=== PATIENT | male | born 1940 | race Caucasian/White ===

== ENCOUNTER 2018-10-07 09:14 | Outpatient (CLI) | payer MEDICARE, OTHER, SELFPAY ==
[2018-10-07 11:36] LABS: ALT 35 U/L (12-78); AST 20 U/L (15-37); Alkaline Phosphatase 102 U/L (46-116); Anion Gap 9.1 mmol/L (3-11); BUN 9 mg/dL (7-18); Bilirubin, Total 0.7 mg/dL (0.2-1.0); CO2 27.9 mmol/L (21.0-32.0); CREATININE 0.85 mg/dL (0.70-1.30); Calcium 9.9 mg/dL (8.5-10.1); Chloride 103 mmol/L (98-107); Cholesterol 171 mg/dL (50-200); Glucose 249 mg/dL (70-100); HDL Cholesterol 49 mg/dL (40-60); LDL CHOLESTEROL 110 mg/dL (<100); Sodium 140 mmol/L (136-145); Total Protein 7.1 g/dL (6.4-8.2); Triglyceride 106 mg/dL (30-150)
[2018-10-07 11:49] LABS: Hemoglobin A1C 7.8 % (4.5-6.2)
[2018-10-07 11:58] LABS: COMMENT (LAB VIEW ONLY) 79.27 mg/dL; Microalb ug/mg Crea 7.8 ug/mg Cr
== END 2018-10-07 09:34 ==
PROVIDERS: PCP Family Medicine; Visit Provider Family Medicine
DX: E11.9 Type 2 diabetes mellitus without complications (principal); I10 Essential (primary) hypertension; I25.10 Atherosclerotic heart disease of native coronary artery without angina pectoris
CPT/HCPCS: 36415; 80053; 80061; 83721; 82043; 82570; 83036

== ENCOUNTER 2019-02-03 07:22 | Outpatient (CLI) | payer MEDICARE, OTHER, SELFPAY ==
[2019-02-03 09:17] LABS: Hemoglobin A1C 8.2 % (4.5-6.2)
== END 2019-02-03 07:42 ==
PROVIDERS: PCP Family Medicine; Visit Provider Family Medicine
DX: E11.9 Type 2 diabetes mellitus without complications (principal)
CPT/HCPCS: 36415; 83036

== ENCOUNTER 2019-06-02 09:06 | Outpatient (CLI) | payer MEDICARE, OTHER, SELFPAY ==
[2019-06-02 10:11] LABS: Hemoglobin A1C 8.4 % (4.5-6.2)
== END 2019-06-02 09:26 ==
PROVIDERS: PCP Family Medicine; Visit Provider Family Medicine
DX: E11.9 Type 2 diabetes mellitus without complications (principal)
CPT/HCPCS: 36415; 83036

== ENCOUNTER 2019-09-30 08:59 | Outpatient (CLI) | payer MEDICARE, OTHER, SELFPAY ==
[2019-09-30 12:14] LABS: Hemoglobin A1C 9.1 % (4.5-6.2)
[2019-09-30 12:22] LABS: ALT 26 U/L (16-63); AST 11 U/L (15-37); Albumin 4.3 g/dL (3.4-5.0); Alkaline Phosphatase 95 U/L (46-116); Anion Gap 8.5 mmol/L (3-11); BUN 13 mg/dL (7-18); Bilirubin, Total 0.6 mg/dL (0.2-1.0); CO2 28.5 mmol/L (21.0-32.0); CREATININE 0.81 mg/dL (0.70-1.30); Calcium 10.1 mg/dL (8.5-10.1); Calculated LDL 97 mg/dL; Chloride 105 mmol/L (98-107); Cholesterol 161 mg/dL (50-200); Glucose 222 mg/dL (70-100); HDL Cholesterol 50 mg/dL (40-60); Potassium 4.8 mmol/L (3.5-5.1); Sodium 142 mmol/L (136-145); Total Protein 7.4 g/dL (6.4-8.2); Triglyceride 71 mg/dL (30-150)
[2019-09-30 12:55] LABS: COMMENT (LAB VIEW ONLY) 91.72 mg/dL; Microalb ug/mg Crea 19.8 ug/mg Cr
== END 2019-09-30 09:19 ==
PROVIDERS: PCP Family Medicine; Visit Provider Family Medicine
DX: E11.9 Type 2 diabetes mellitus without complications (principal); E78.5 Hyperlipidemia, unspecified; I10 Essential (primary) hypertension; I25.10 Atherosclerotic heart disease of native coronary artery without angina pectoris
CPT/HCPCS: 36415; 80053; 80061; 82043; 82570; 83036

== ENCOUNTER 2019-10-20 01:20 | Outpatient (CLI) | payer MEDICARE, OTHER, SELFPAY ==
--- NOTE | 2019-10-20 10:20 | DIABASSESS_ITS ---
DESCRIPTION/ASSESSMENT: Mor Nelson presents for medical nutrition therapy for diabetes. Earliest A1c 2012. He has had a recent jump in A1c to 9.1 and this has caused him to come in for self management support. Nutrition: 2 toast or biscuit , portillo, sausage; occasionally raisin bran with whole milk for breakfast or supper; lunch is sandwich of olive loaf with olson or peas with cottage cheese or skips lunch; supper is meat; last night hamburg with bun. He has muffins or peaches in evening. He declines alcoholic beverages. Physical Activity: in the [place] cutting trees most days and heats his house with it. Medication: Medication list indicates Glipizide and Metformin although he does not confirm this specifically. Monitoring: each morning with blood sugars over the past week 175-198 however this morning it was 230mg/dl. Risks/Related health history: Cholesterol near goal; no identified co- morbidities although he states he has had stomach problems in the past. Coping: Describes still grieving the of his but remains active and engaged. Admits to feeling down at times. INTERVENTION: Mr. Nelson is interested in the food aspect of diabetes management. Food Guidelines - reviewed food guide for diabetes with lengthy discussion and he voices understanding. Medication - suggested glycemic management with additional medication in the event lifestyle changes are inadequate. He is not interested at this time. Monitoring - suggested varying the time to see if blood sugars change throughout the day. Coping - discussed loneliness and loss and impact on blood sugars. ACTION PLAN: Mr. Nelson will: increase vegetables daily; avoid highly processed grains and decrease frequency of grain intake Monitor blood sugars occasionally before bed or before supper to assess impact of choices made during his day. We will be in touch by telephone for follow up. Individual MNT 4 units 65 minutes face to face No DM group education series being offered at this time.
== END 2019-10-20 01:40 ==
PROVIDERS: PCP Family Medicine; Visit Provider Dietitian, Registered
DX: E11.9 Type 2 diabetes mellitus without complications (principal); Z79.84 Long term (current) use of oral hypoglycemic drugs; Z71.3 Dietary counseling and surveillance
CPT/HCPCS: 97802

== ENCOUNTER 2020-02-02 07:07 | Outpatient (CLI) | payer MEDICARE, OTHER, SELFPAY ==
[2020-02-02 08:21] LABS: Hemoglobin A1C 8.5 % (3.8-5.6)
== END 2020-02-02 07:27 ==
PROVIDERS: PCP Family Medicine; Visit Provider Family Medicine
DX: E11.9 Type 2 diabetes mellitus without complications (principal)
CPT/HCPCS: 36415; 83036

== ENCOUNTER 2021-11-04 03:19 | Outpatient (CLI) | payer MEDICARE, OTHER, SELFPAY ==
[2021-11-04 14:50] LABS: Hemoglobin A1C 6.9 % (<5.7)
[2021-11-04 15:12] LABS: COMMENT (LAB VIEW ONLY) 247.05 mg/dL; Microalb ug/mg Crea 16.9 ug/mg Cr
[2021-11-04 15:33] LABS: ALT 29 U/L (16-63); AST 17 U/L (15-37); Alkaline Phosphatase 96 U/L (46-116); BUN 10 mg/dL (7-18); Bilirubin, Total 0.9 mg/dL (0.2-1.0); CREATININE 0.8 mg/dL (0.70-1.30); Chloride 106 mmol/L (98-107); Glucose 131 mg/dL (74-106); Potassium 4.1 mmol/L (3.5-5.1); Sodium 142 mmol/L (136-145)
== END 2021-11-04 03:20 | disposition home or self-care (01) ==
LOC: LBO 03:20
PROVIDERS: PCP Family Medicine; Visit Provider Family Medicine
DX: I10 Essential (primary) hypertension (principal); E11.9 Type 2 diabetes mellitus without complications
CPT/HCPCS: 36415; 80053; 82043; 82570; 83036

== ENCOUNTER 2022-03-03 02:33 | Outpatient (CLI) | payer MEDICARE, OTHER, SELFPAY ==
[2022-03-03 14:19] LABS: Hemoglobin A1C 7.8 % (<5.7)
[2022-03-03 14:42] LABS: COMMENT (LAB VIEW ONLY) 139.15 mg/dL; Microalb ug/mg Crea 13.7 ug/mg Cr
[2022-03-03 15:42] LABS: ALT 28 U/L (16-63); AST 16 U/L (15-37); Alkaline Phosphatase 100 U/L (46-116); Anion Gap 8.5 mmol/L (3-11); BUN 10 mg/dL (7-18); Bilirubin, Total 0.9 mg/dL (0.2-1.0); CO2 27.5 mmol/L (21.0-32.0); CREATININE 0.8 mg/dL (0.70-1.30); Calcium 9.5 mg/dL (8.5-10.1); Calculated LDL 99 mg/dL (<100); Chloride 105 mmol/L (98-107); Cholesterol 162 mg/dL (<200); Glucose 164 mg/dL (74-106); HDL Cholesterol 46 mg/dL (40-60); Potassium 4.1 mmol/L (3.5-5.1); Sodium 141 mmol/L (136-145); Total Protein 6.9 g/dL (6.4-8.2); Triglyceride 87 mg/dL (<150)
== END 2022-03-03 02:34 | disposition home or self-care (01) ==
LOC: LBO 02:33
PROVIDERS: PCP Family Medicine; Visit Provider Family Medicine
DX: E11.3299 Type 2 diabetes mellitus with mild nonproliferative diabetic retinopathy without macular edema, unspecified eye (principal); E78.5 Hyperlipidemia, unspecified; I10 Essential (primary) hypertension; I25.10 Atherosclerotic heart disease of native coronary artery without angina pectoris
CPT/HCPCS: 36415; 80053; 80061; 82043; 82570; 83036

== ENCOUNTER 2022-10-18 10:50 | Emergency (ER) | payer MEDICARE, OTHER, SELFPAY ==
[2022-10-18 11:04] VITALS: BP 159/49; PULSE 65; RESP 12; TEMP 36.7; O2SAT 99
--- NOTE | 2022-10-18 12:14 | ED.GENADUL_ITS ---
Discharge Plan Disposition Patient Disposition: Home Condition: Improving Discharge Details Clinical Impression: Acute sore throat Primary Care Provider: Adele Lee ED Provider: Dre Harding Home Meds and New Rx's Prescriptions: Continued nitroglycerin [Nitrostat] 0.4 mg tablet, sublingual 0.4 mg Sublingual PRN Qty: 25 3RF Rx Instructions: TAKE IF YOU HAVE CHEST PAIN. REPEAT EVERY 5 MIN. FOR 3 DOSES. GO TO THE ER IF NOT RELIEVED. glipizide 10 mg tablet extended release 24hr 10 mg PO BID Qty: 180 4RF losartan 25 mg tablet 25 mg PO DAILY Qty: 90 4RF metformin 1,000 mg tablet See Rx Instructions PO TID Qty: 225 4RF Dose Instruction: 1 tab AM and PM; 0.5tab noon PO TID; Rx Instructions: 1.5 tabs am and 1 tab pm aspirin [Aspir-81] 81 mg tablet,delayed release (DR/EC) 81 mg PO 3x/week Label Comments: 07/18/21- Per patient, he takes only occasionally. aj Discharge Instructions Instructions: Viral Syndrome (ED) Additional Instructions: Thank you for your service. Your rapid strep test was negative. Continue salt water gargles to ease discomfort of your sore throat. You may use okrf-vqv-zfzsqir lozenges. We will call you with your viral swab tests this afternoon. Return to the emergency department for any acute concern Medical Decision Making 82-year-old male presents from home complaining of 2 to 3 days of sore throat and dry cough. No known sick contacts, he is immunized against COVID. On arrival he is well-appearing and his exam is reassuring. Rapid strep test obtained and negative. Viral swabs are pending. Patient wishes to be discharged to home, stating he feels improved. I will call him with results of the viral swabs: The pt was positive for COVID-19. He and I discussed that he would wish to avoid any antiviral treatment. Sign Out No HPI General Mode of arrival: ambulatory . Date/Time Provider Initiated Documentation: 10/18/22 11:13 . Limitations to Documentation: no limitations . Information obtained by: patient . History of Present Illness 82 year old M presents to the emergency department with the chief complaint of Sore throat and dry cough, described as moderate, and is localized to the mouth and chest. Patient reports no radiation. Patient started experiencing this day(s) and it has been intermittent. No relieving factors improve symptom(s), No exacerbating factors reported . Patient notes cough; denies chest pain, fever/chills and shortness of breath. Patient did receive the following treatments prior to arrival, none Related Data Home Medications Medication Instructions Recorded Confirmed aspirin 81 mg tablet,delayed 81 mg PO 3x/week 07/18/21 10/18/22 release (Aspir-) nitroglycerin 0.4 mg sublingual 0.4 mg sublingual PRN #25 tabs 11/07/21 10/18/22 tablet (Nitrostat) glipizide 10 mg tablet, extended 10 mg PO BID #180 tabs 02/27/22 10/18/22 release 24 hr losartan 25 mg tablet 25 mg PO DAILY #90 tabs 02/27/22 10/18/22 metformin 1,000 mg tablet See Rx Instructions PO TID #225 02/27/22 10/18/22 tab-caps Previous Rx's Medication Instructions Recorded nitroglycerin 0.4 mg sublingual 0.4 mg sublingual PRN #25 tabs 11/07/21 tablet (Nitrostat) glipizide 10 mg tablet, extended 10 mg PO BID #180 tabs 02/27/22 release 24 hr losartan 25 mg tablet 25 mg PO DAILY #90 tabs 02/27/22 metformin 1,000 mg tablet See Rx Instructions PO TID #225 02/27/22 tab-caps Allergies Allergy/AdvReac Type Severity Reaction Status Date / Time amoxicillin Allergy Unknown Verified 10/18/22 12:26 mesalamine AdvReac Mild GI Verified 10/18/22 12:26 General Stated Complaint: RespSymp [place]INA: 4 Review of Systems Narrative: Some production of sputum, no fever, persistent sore throat but otherwise feels well today. No known sick contacts. Immunized against COVID. 8 systems were reviewed and otherwise negative [facility] All Active Problems (Updated 10/18/22 @ 12:29 by Dre Harding MD) Acute sore throat (Acute) NPDR (nonproliferative diabetic retinopathy) (Acute ~03/11/21) 03/11/21 AMA (Breonna) EYE Physician orders for life-sustaining treatment (POLST) form indicates patient wish for ni-cui-xvazoyvakpz status (Acute) DNR (do not resuscitate) (Acute) Sebaceous cyst (Acute 10/08/17) Tubular adenoma (Chronic 09/20/17) 09/12/17 DR. VILLA; 2 08/10/14 DR. 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 Jim Knox Extraction of cataract 06/27/17 (L) [facility] Stent placement CAD Family History Family history Diabetes Personal history of malignant neoplasm colon Social History Smoking/Tobacco Use Status: Former Tobacco Use Quit Date: 11/19/90 Tobacco: How many years used: 25 Smoking risk assessment performed?: Yes Alcohol Intake: never Drug use: Never Substance use type: does not use Do you feel safe at home: Yes Do you feel safe in your relationship?: Yes Exam Narrative Exam Narrative: GEN: awake, alert, oriented 3. Pleasant, well groomed, interactive. HEAD: Normocephalic, atraumatic ENT: Mucous membranes moist, oropharynx erythematous tonsillar pillars without exudate or asymmetry, no swelling, tympanic membranes clear and visualized bilaterally,, External ear exam unremarkable EYES: PERRL, EOMI NECK: Full ROM, no JUAN, no menigismus CHEST/RESP: Nontender, clear to auscultation bilateral, no wheeze/rhonchi/rales CARDIOVASCULAR: RRR, no murmur, rub ori. 2+ Rad pulse bilateral ABDOMEN: Soft, nontender, no mass. +Bowel sounds EXT: Full ROM, no edema, no rash Neuro: Grossly normal neurologic exam, conversant, interactive. Psych: Speech fluent, thoughts congruent, affect normal Course Vital Signs Vital signs: Vital Signs Temperature 36.7 C 10/18/22 11:04 Pulse 65 10/18/22 11:04 Respiratory Rate 12 10/18/22 11:04 Blood Pressure 159/49 H 10/18/22 11:04 Pulse Oximetry 99 10/18/22 11:04 Temperature 36.7 C 10/18/22 11:04 Temperature Source Oral 10/18/22 11:04 Pulse 65 10/18/22 11:04 Respiratory Rate 12 10/18/22 11:04 Blood Pressure 159/49 H 10/18/22 11:04 Blood Pressure Position Sitting 10/18/22 11:04 Pulse Oximetry 99 10/18/22 11:04 Oxygen Delivery Method Room Air 10/18/22 11:04 Oxygen Flow Rate 0 10/18/22 11:04 Pain Level 5 10/18/22 11:04
[2022-10-18 13:09] LABS: Influenza A PCR Negative (Negative); Influenza B PCR Negative (Negative); RSV PCR Negative (Negative)
[2022-10-18 13:14] LABS: Source Nasopharynx
[2022-10-18 13:15] LABS: COVID-19 PCR Positive (Negative)
== END 2022-10-18 12:56 | disposition home or self-care (01) ==
PROVIDERS: Emergency Provider Emergency Medicine; PCP Family Medicine
DX: J02.9 Acute pharyngitis, unspecified (principal)
CPT/HCPCS: 87637; 87880; 99282; 87081

== ENCOUNTER 2022-12-05 03:39 | Outpatient (CLI) | payer MEDICARE, OTHER, SELFPAY ==
[2022-12-05 12:57] LABS: ALT 19 U/L (16-63); AST 16 U/L (15-37); Albumin 4.1 g/dL (3.4-5.0); Alkaline Phosphatase 85 U/L (46-116); Anion Gap 4.4 mmol/L (3-11); BUN 11 mg/dL (7-18); Bilirubin, Total 0.9 mg/dL (0.2-1.0); CO2 27.6 mmol/L (21.0-32.0); CREATININE 0.8 mg/dL (0.70-1.30); Calcium 10.2 mg/dL (8.5-10.1); Chloride 108 mmol/L (98-107); Estimated GFR 89.47 (mL/min/1.73m2); Glucose 141 mg/dL (74-106); Potassium 4.4 mmol/L (3.5-5.1); Sodium 140 mmol/L (136-145); Total Protein 7.3 g/dL (6.4-8.2)
[2022-12-05 12:59] LABS: Microalb ug/mg Crea 14.6 ug/mg Cr
[2022-12-05 19:26] LABS: Estimated Average Glucose 140 mg/dL; Hemoglobin A1C 6.5 % (<5.7)
== END 2022-12-05 03:40 | disposition home or self-care (01) ==
LOC: LOS 03:39
PROVIDERS: PCP Family Medicine; Visit Provider Family Medicine
DX: I10 Essential (primary) hypertension (principal); E11.9 Type 2 diabetes mellitus without complications
CPT/HCPCS: 36415; 80053; 82043; 82570; 83036

== ENCOUNTER 2023-02-26 11:45 | Outpatient (CLI) | payer MEDICARE, OTHER, SELFPAY ==
--- NOTE | 2023-02-26 11:45 | RT.EKG_ITS ---
APPROVED REPORT Exam: Resting ECG Reason for Exam: chest pain Patient Location: O HR:63 bpm ECG Measurements Heart Rate 63 AXIS AL 199 P 9 QRSd 87 QRS 11 QT 391 T -15 QTc 401 Conclusion Sinus rhythm...normal P axis, V-rate 50- 99 Normal Electrocardiogram
== END 2023-02-26 11:46 | disposition home or self-care (01) ==
LOC: DI.CM 11:46
PROVIDERS: PCP Family Medicine; Visit Provider Nurse Practitioner Family
DX: R07.9 Chest pain, unspecified (principal)
CPT/HCPCS: 93010

== ENCOUNTER 2023-03-06 14:20 | Emergency (ER) | payer MEDICARE, OTHER, SELFPAY ==
[2023-03-06] VITALS (12 sets, daily range): BP systolic 129–163; BP diastolic 52–66; PULSE 56–65; RESP 16–20; TEMP 36.3; O2SAT 97–100
--- NOTE | 2023-03-06 14:15 | RT.EKG_ITS ---
APPROVED REPORT Exam: Resting ECG Reason for Exam: chest pain Patient Location: E HR:60 bpm ECG Measurements Heart Rate 60 AXIS NC 199 P 45 QRSd 83 QRS 8 QT 409 T 8 QTc 407 Conclusion Sinus rhythm...normal P axis, V-rate 60- 99
--- NOTE | 2023-03-06 14:15 | DI.RAD_ITS ---
Exam(s) XR PORTABLE CHEST AP EXAM: XR PORTABLE CHEST AP CLINICAL HISTORY: CP TECHNIQUE: 2D digital imaging was performed of the chest. One image was obtained. An AP view was ob tained. COMPARISON: No exams were available for comparison FINDINGS: MEDIASTINUM: Normal. HEART: Normal. PULMONARY VASCULATURE: Normal. LUNGS: Clear. PLEURAL SPACE: No pleural effusion or pneumothorax. BONE:Within normal limits for the patient's age. OTHER FINDINGS:Normal. IMPRESSION: No acute pulmonary findings. DATA REPOSITORY: RADIATION DOSE DELIVERED:
--- NOTE | 2023-03-06 14:29 | W.ED.GENAD ---
Discharge Plan Disposition Patient Disposition: Transfer-Acute Inpatient Care Specific Acute Inpt Facility: Other Discharge Details Clinical Impression: Acute non-ST elevation myocardial infarction (NSTEMI) Primary Care Provider: Adele Lee ED Provider: Andria Horowitz Home Meds and New Rx's Prescriptions: No Action metformin 1,000 mg tablet 1,000 mg PO DAILY Qty: 90 4RF glipizide 10 mg tablet extended release 24hr 10 mg PO DAILY Qty: 90 4RF nitroglycerin [Nitrostat] 0.4 mg tablet, sublingual 0.4 mg Sublingual PRN Qty: 25 3RF Rx Instructions: TAKE IF YOU HAVE CHEST PAIN. REPEAT EVERY 5 MIN. FOR 3 DOSES. GO TO THE ER IF NOT RELIEVED. losartan 25 mg tablet 25 mg PO DAILY Qty: 90 4RF aspirin [Aspir-81] 81 mg tablet,delayed release (DR/EC) 81 mg PO 3x/week Patient Comments: 07/18/21- Per patient, he takes only occasionally. aj Discharge Data Discharge Date/Time-TO BE ENTERED AT DEPARTURE: 03/06/23 18:06 Medical Decision Making Case discussed with Dr. Weathers, hospitalist and Dr. Calderon, end user support specialist at [facility]. They do have a telemetry bed and have accepted the patient in transfer. I have updated the patient on his test results and the plan, which he concurs with. 174: I have updated the patient again on the plan for transfer. He is concerned about his truck in the parking lot. He did ask nursing to call his son who came in and had some questions (patient stated it was okay to talk to him), but when I went out to the waiting room he had left. Note that [facility] and [facility] had no beds either today or tomorrow. Medical Records Medical records reviewed: Yes I reviewed the patient's medical records. Imaging Data Radiologic Study: Attestation: I personally reviewed and interpreted this imaging study as follows: (NAD, stent visible) Lab Data Lab results reviewed: Yes I reviewed the patient's lab results. Lab results narrative: CBC within normal limits. 1530 patient's troponin is back and elevated at 318. He has no old ones for comparison. He is pain-free. ECG Data Attestation: I personally reviewed and interpreted this ECG (s) as follows: Interpretation: Sinus rhythm...normal P axis, V-rate 60- 99; patient has subtle ST depression in V3,4 and 5. These are new when I compare this to 02/26/2023. EKG #2 shows resolution of the subtle ST depression. HPI General Date/Time Provider Initiated Documentation: 03/06/23 14:29. HPI Narrative: This 82-year-old male patient presents with a chief complaint of exertional chest pain that is been off and on for the past 2 weeks. Patient is a poor historian and initially told me that nothing made it better or worse. He then told me that the very first time it started it woke him up about 3:00 in the morning. Since then he has had the pain just with exertion. He either rests or takes a nitroglycerin with relief. He states the nitroglycerin is from 2013 but still work. The patient does have 1 stent that was placed in 2013. The pain does not radiate anywhere. He describes it as substernal pressure. It is moderate in severity. Cannot remember whether he still had any pain in the first EKG was done in the department today. He denies shortness of breath. He has no pedal edema or calf pain. The pain today seemed worse and he decided he should come in. Usually only last about 15 minutes at a time but he is getting it on a daily basis. Related Data Home Medications Medication Instructions Recorded Confirmed aspirin 81 mg tablet,delayed 81 mg PO 3x/week 07/18/21 03/06/23 release (Aspir-) losartan 25 mg tablet 25 mg PO DAILY #90 tabs 02/27/22 03/06/23 glipizide 10 mg tablet, extended 10 mg PO DAILY #90 tabs 01/02/23 03/06/23 release 24 hr metformin 1,000 mg tablet 1,000 mg PO DAILY #90 tab-caps 01/02/23 03/06/23 nitroglycerin 0.4 mg sublingual 0.4 mg sublingual PRN #25 tabs 02/26/23 03/06/23 tablet (Nitrostat) Previous Rx's Medication Instructions Recorded losartan 25 mg tablet 25 mg PO DAILY #90 tabs 02/27/22 glipizide 10 mg tablet, extended 10 mg PO DAILY #90 tabs 01/02/23 release 24 hr metformin 1,000 mg tablet 1,000 mg PO DAILY #90 tab-caps 01/02/23 nitroglycerin 0.4 mg sublingual 0.4 mg sublingual PRN #25 tabs 02/26/23 tablet (Nitrostat) Allergies Allergy/AdvReac Type Severity Reaction Status Date / Time amoxicillin Allergy Unknown Verified 02/26/23 11:38 mesalamine AdvReac Mild GI Verified 02/26/23 11:38 General Stated Complaint: Chest Pain CAROLINA: 3 Review of Systems Constitutional Constitutional: Denies chills, Denies fever(s), Denies headache(s) and Denies weakness Eyes Eyes: Denies diplopia and Reports other (no redness) ENT Ears, Nose, Mouth, and Throat: Denies otalgia, Denies headache(s), Denies nasal congestion, Denies nasal discharge, Denies neck pain and Denies sore throat Cardiovascular Cardiovascular: Reports chest pain, Denies palpitations and Denies dyspnea Respiratory Respiratory: Denies cough and Denies dyspnea Gastrointestinal Gastrointestinal: Denies abdominal pain, Denies diarrhea, Denies nausea and Denies vomiting Genitourinary Genitourinary: Denies difficulty urinating and Denies dysuria Musculoskeletal Musculoskeletal: Denies myalgias, Denies muscle weakness, Denies neck pain, Denies numbness and Reports other (edema) Integumentary/Breasts Skin/Breast: Denies change in pigmentation and Denies rash Neurologic Neurologic: Denies headache(s), Denies numbness and Denies weakness Endocrine Endocrine: Denies palpitations PFSH All Active Problems (Updated 03/06/23 @ 16:38 by Andria Horowitz MD) Acute non-ST elevation myocardial infarction (NSTEMI) (Acute) NPDR (nonproliferative diabetic retinopathy) (Acute ~03/11/21) 03/11/21 AMA (Breonna) EYE Physician orders for life-sustaining treatment (POLST) form indicates patient wish for ln-omd-kuxhitexxvo status (Acute) DNR (do not resuscitate) (Acute) Sebaceous cyst (Acute 10/08/17) Tubular adenoma (Chronic 09/20/17) 09/12/17 DR. VILLA; 2 08/10/14 DR. 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 Jim Knox Extraction of cataract 06/27/17 (L) [facility] Stent placement CAD Family History Family history Diabetes Personal history of malignant neoplasm colon Social History Smoking/Tobacco Use Status: Former Tobacco Use Quit Date: 11/19/90 Tobacco: How many years used: 25 Smoking risk assessment performed?: Yes Alcohol Intake: never Drug use: Never Substance use type: does not use Do you feel safe at home: Yes Do you feel safe in your relationship?: Yes Exam Const General: no acute distress, well developed, well groomed and not in acute distress Nutritional Appearance: well nourished Orientation: alert and oriented x3 HENMT Head: normocephalic and atraumatic Ears: external ears normal Mouth: oropharynx normal and moist mucous membranes Throat: posterior oropharynx normal Eyes Conjunctivae: conjunctivae normal Neck Neck: full ROM and supple Chest Chest: normal inspection of the chest and normal palpation of entire chest wall Resp Effort & Inspection: normal respiratory effort Auscultation: clear to auscultation bilaterally Cardio Rate: regular rate Rhythm: regular rhythm Heart Sounds: no murmurs and no rubs GI Inspection: normal to inspection Palpation: soft, nontender and other (non distended) Auscultation: normal bowel sounds Skin General skin exam: no rashes or lesions noted and other (pink, warm, dry) Neuro General: patient alert, patient awake and patient oriented x3 Speech: speech normal Motor: other (CLARKE) Sensory Exam: no sensory deficits noted Extrem General: normal to inspection, full ROM and pedal edema present Psych Mental Status: mental status grossly normal Speech and Movement: speech and movement normal Affect: normal affect Course Vital Signs Vital signs: Blood Pressure Position Supine 03/06/23 14:24 Oxygen Delivery Method Room Air 03/06/23 14:24 Oxygen Flow Rate 0 03/06/23 14:24 Pain Level 0 03/06/23 14:24
[2023-03-06 15:02] LABS: Abs Immature Grans 0.02 10^3/uL (0.0-0.06); Absolute Basophil Count 0.07 10^3/uL (0.0-0.2); Absolute Eosinophil Count 0.08 10^3/uL (0.0-0.7); Absolute Lymphocyte Count 1.69 10^3/uL (1.2-3.4); Absolute Monocyte Count 0.54 10^3/uL (0.1-0.8); Eosinophils % 1.1; HCT 44.5 % (40.0-50.0); HGB 15.5 g/dL (13.5-17.5); Immature Grans % 0.3; Lymphocytes % 24.1; MCHC 34.8 % (32.0-36.0); MCV 86 fL (80-95); MPV 11.4 fL (8.0-11.0); Monocytes % 7.7; Neutrophils % 65.8; Platelet Count 183 10^3/uL (130-400); RBC 5.17 10^6/uL (4.36-5.78); RDW 12.6 % (11.8-14.1); RDW-SD 39.2 fL
--- NOTE | 2023-03-06 15:18 | NUR.NOTE ---
Nursing Note: Report received from Luis Velez
[2023-03-06 15:20] LABS: ALT 26 U/L (16-63); AST 17 U/L (15-37); Albumin 3.7 g/dL (3.4-5.0); Alkaline Phosphatase 88 U/L (46-116); Anion Gap 4.8 mmol/L (3-11); BUN 8 mg/dL (7-18); Bilirubin, Total 0.9 mg/dL (0.2-1.0); CO2 28.2 mmol/L (21.0-32.0); CREATININE 0.8 mg/dL (0.70-1.30); Calcium 9.5 mg/dL (8.5-10.1); Chloride 108 mmol/L (98-107); Estimated GFR 89.47 (mL/min/1.73m2); Glucose 162 mg/dL (74-106); Magnesium 1.9 mg/dL (1.8-2.4); Potassium 3.6 mmol/L (3.5-5.1); Sodium 141 mmol/L (136-145); Total Protein 6.8 g/dL (6.4-8.2)
[2023-03-06 15:23] LABS: Troponin I 318 ng/L (<or=60)
--- NOTE | 2023-03-06 15:45 | RT.EKG_ITS ---
APPROVED REPORT Exam: Resting ECG Reason for Exam: Patient Location: E HR:58 bpm ECG Measurements Heart Rate 58 AXIS TN 203 P 45 QRSd 84 QRS 5 QT 405 T 7 QTc 399 Conclusion Sinus bradycardia...rate< 60 Physician: no stemi
[2023-03-06] MEDS: Aspirin 81 MG CHEW 324 MG CH (15:47)
[2023-03-06 16:45] LABS: PTT Activated 25.4 sec (21.5-31.9)
[2023-03-06 17:48] LABS: Troponin I 388 ng/L (<or=60)
--- NOTE | 2023-03-06 18:04 | NUR.NOTE ---
Nursing Note: Called [facility] to give report @[phone]. Charge nurse states that assigned nurse to take pt is unavailable at this time.
--- NOTE | 2023-03-06 18:17 | NUR.NOTE ---
Nursing Note: Pt transferred to [facility]. Security aware of pt vehicle: Gray [id number], silver, plate [id number], in the parking lot below the ED. 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 Called his son Edgardo and he spoke with patient prior to his leaving. Gave him the facility name and phone number so that he can contact him.
== END 2023-03-06 18:06 | disposition short-term general hospital (02) ==
PROVIDERS: Emergency Provider Emergency Medicine; PCP Family Medicine
DX: I21.4 Non-ST elevation (NSTEMI) myocardial infarction (principal)
CPT/HCPCS: 36415; 80053; 93005; 96365; 96366; 99285; 71045; 83735; 84484; 85025; 85610; 85730; 93010

== ENCOUNTER 2023-12-06 11:23 | Outpatient (REF) | payer MEDICARE, OTHER, SELFPAY ==
[2023-12-06 13:29] LABS: COMMENT (LAB VIEW ONLY) 229.61 mg/dL; Microalb ug/mg Crea 37.5 ug/mg Cr
== END 2023-12-06 11:24 | disposition home or self-care (01) ==
LOC: LBN 11:23
PROVIDERS: PCP Family Medicine; Visit Provider Family Medicine
DX: E11.9 Type 2 diabetes mellitus without complications (principal)
CPT/HCPCS: 82043; 82570

== ENCOUNTER 2024-03-18 09:15 | Outpatient (CLI) | payer MEDICARE, OTHER, SELFPAY ==
[2024-03-18 12:08] LABS: HCT 48.3 % (40.0-50.0); HGB 16.6 g/dL (13.5-17.5); MCH 30.2 pg (27.0-33.0); MCHC 34.4 % (32.0-36.0); MCV 88 fL (80-95); MPV 12.2 fL (8.0-11.0); Platelet Count 166 10^3/uL (130-400); RBC 5.49 10^6/uL (4.36-5.78); RDW 12.8 % (11.8-14.1); RDW-SD 41.3 fL; WBC 8.36 10^3/uL (4.4-10.8)
[2024-03-18 12:48] LABS: ALT 22 U/L (16-63); AST 14 U/L (15-37); Alkaline Phosphatase 94 U/L (46-116); Anion Gap 8.7 mmol/L (3-11); BUN 13 mg/dL (7-18); Bilirubin, Total 1.2 mg/dL (0.2-1.0); CO2 26.3 mmol/L (21.0-32.0); Calcium 9.5 mg/dL (8.5-10.1); Calculated LDL 86 mg/dL (<100); Chloride 105 mmol/L (98-107); Cholesterol 155 mg/dL (<200); Estimated GFR 75.61 (mL/min/1.73m2); Glucose 257 mg/dL (74-106); HDL Cholesterol 52 mg/dL (40-60); Potassium 3.8 mmol/L (3.5-5.1); Sodium 140 mmol/L (136-145); TSH (W/Ref FT4) 1.92 uIU/mL (0.36-3.74); Total Protein 7.2 g/dL (6.4-8.2); Triglyceride 86 mg/dL (<150); Vitamin B12 413 pg/mL (193-986)
[2024-03-19 09:05] LABS: Lyme Ab w Rflx to Lyme Confirm Negative (Negative)
== END 2024-03-18 09:16 | disposition home or self-care (01) ==
LOC: LOS 09:16
PROVIDERS: PCP Family Medicine; Referring Provider Family Medicine; Visit Provider Family Medicine
DX: D64.9 Anemia, unspecified (principal); I10 Essential (primary) hypertension; G62.9 Polyneuropathy, unspecified; E03.9 Hypothyroidism, unspecified; R53.83 Other fatigue
CPT/HCPCS: 36415; 80053; 80061; 85027; 82607; 84443; 86618

== ENCOUNTER → 2024-08-27 12:17 | Outpatient (BNVA) | payer MEDICARE, OTHER, SELFPAY | PROVIDERS: PCP Family Medicine; Referring Provider Family Medicine; Visit Provider Nurse Practitioner Adult Health | DX: G56.21 Lesion of ulnar nerve, right upper limb (principal); G56.01 Carpal tunnel syndrome, right upper limb | CPT/HCPCS: 95909; 99215 ==

== ENCOUNTER → 2024-11-20 08:54 | Outpatient (BNVA) | payer MEDICARE, OTHER, SELFPAY | PROVIDERS: PCP Family Medicine; Referring Provider Family Medicine; Visit Provider Student in an Organized Health Care Education/Training Program | DX: G56.01 Carpal tunnel syndrome, right upper limb (principal); G56.21 Lesion of ulnar nerve, right upper limb; M72.0 Palmar fascial fibromatosis [Dupuytren] | CPT/HCPCS: 99213 ==

== ENCOUNTER 2025-02-04 13:14 | Day surgery (SDC) | payer MEDICARE, OTHER, SELFPAY ==
[2025-02-04 13:32] VITALS: BP 152/61; PULSE 61; RESP 18; TEMP 36.5; O2SAT 98
--- NOTE | 2025-02-04 15:49 | W.PM.DSUDISC ---
Date of service: 02/04/25 Discharge Plan Disposition Patient Disposition: Home Condition: Good Discharge Details Reason For Visit: R ECTR Attending Provider: Wil Vasquez Primary Care Provider: Adele Lee Home Meds and New Rx's Prescriptions: New hydrocodone-acetaminophen 5-325 mg tablet 1 tab PO Q6H PRN (Reason: pain) Qty: 4 0RF acetaminophen 500 mg tablet 1,000 mg PO TID Qty: 90 0RF ibuprofen 600 mg tablet 600 mg PO TID PRN (Reason: pain) Qty: 90 0RF Continued nitroglycerin 0.4 mg tablet, sublingual 0.4 mg sublingual Q5-15M PRN Patient Comments: PLACE 1 TABLET UNDER THE TONGUE EVERY 5 MINUTES NEEDED FOR CHEST PAIN FOR 3 DOSES. GO TO THE E.R. IF NOT RELIEVED metoprolol succinate 25 mg tablet extended release 24 hr 25 mg PO DAILY Qty: 90 6RF losartan 100 mg tablet 100 mg PO DAILY Qty: 90 4RF aspirin [Aspir-81] 81 mg tablet,delayed release (DR/EC) 81 mg PO 3x/week Patient Comments: 07/18/21- Per patient, he takes only occasionally. aj glipizide 10 mg tablet extended release 24hr 10 mg PO DAILY Qty: 90 4RF Discharge Instructions Stand Alone Forms: Christina Felton Tunnel Release Referrals: Wil Vasquez MD [ [facility] STAFF PHYSICIAN] - Activity:: Activity as Tolerated Remove Dressings/Wound Care:: 48 hours Shower/Bathe:: 48 hours Diet:: As Tolerated Discharge Orders Discharge Orders: Discharge Order (Routine); Ordered 02/04/25 Ordered By: Clemente Olivares DS: Diagnosis Discharge Diagnosis (1) Right carpal tunnel syndrome: Status: Acute
[2025-02-04] MEDS: Lidocaine 1% Multi-Dose W/EPI 1/100,000 50 ML VIAL (15:54)
[2025-02-04] MEDS: Sodium Bicarbonate 50 MEQ/50 ML VIAL (15:55)
[2025-02-04 16:05] VITALS: BP 170/68; PULSE 64; RESP 18; TEMP 36.7; O2SAT 99
[2025-02-04 16:19] VITALS: BP 168/73; PULSE 60; RESP 18; TEMP 36.6; O2SAT 96
--- NOTE | 2025-02-04 21:45 | ROE_ITS ---
Operative Note Operative Note PRE-OP DIAGNOSIS: Right Carpal Tunnel Syndrome POST-OP DIAGNOSIS: same PROCEDURE: Right Endoscopic Carpal Tunnel Release SURGEON: Wil Vasquez ANESTHESIA TYPE: General:No Airway Refer to Anesthesia Record ESTIMATED BLOOD LOSS: 0 PATHOLOGY: none sent TOURNIQUET TIME: 6 COMPLICATIONS: None Patient was transported to: same day Patient's condition: stable Indications: I have seen Marcelino in clinic for symptoms of carpal tunnel syndrome. The numbness, tingling, and pain limited function. Clinical exam findings [with nerve conduction tests ]confirmed the diagnosis of carpal tunnel syndrome. Nonoperative measures such as bracing, time, activity modifications had been tried but disability and pain persisted. I discussed carpal tunnel release with the patient. I reviewed the risks of the procedure to include, but not limited to, bleeding, infection, pain, stiffness, incomplete release, damage to nerves or vessels, persistent numbness, recurrence. Despite these risks, the patient elected to proceed. Findings: There was tightened carpal tunnel. This was dilated and released successfully with the endoscopic with increased space within the tunnel. The antebrachial fascia was released proximally freeing the median nerve at the wrist. Procedure Description: Marcelino was greeted in the preoperative holding area where the correct side was identified and marked. The consent was reviewed with the patient and signed. The history and physical was updated. All questions were answered. He was taken back to the operating room. The patient was placed into the supine position on the operating room table with the right arm on an arm board. A nonsterile tourniquet was placed high onto the arm. All bony prominences were well padded. Prophylactic antibiotics in the form of Cefazolin were administered. The right arm was then prepped with Chloraprep and draped in a standard fashion with stockinette and extremity drape. A timeout to confirm correct identity, side and site, procedure, allergies, anesthesia, and medical concerns was performed. The surgical site was marked in the volar wrist creases in line with the radial border of the fourth ray. This area was anesthetized with approximately 6cc of 1% Lidocaine. The limb was then exsanguinated with an Esmarch. The skin was incised with a 15 blade, approximately 1cm. The skin only was cut and the deeper tissue was dissected bluntly with a tenotomy scissor, avoiding passing nerve and venous structures. The fascia was penetrated and opened bluntly. A two-prong skin hook was placed under this proximal fascial edge. A series of hamate finders were used to identify and dilate the carpal tunnel. Synovial elevator was used to free synovial attachments to the underside of the transverse carpal ligament. My thumb was kept in the palm to maddy the distal extent of the carpal tunnel and correctly position the hand. The Microaire endoscope was inserted without difficulty and without resistance. Excellent visualization showed horizontally running fibers of the transverse carpal ligam ent (TCL). The distal extent of the TCL was visualized and the end of the scope palpated with the thumb. The blade was elevated and withdrawn from distal to proximal. The TCL was split into two flaps. The endoscope was reinserted to confirm complete release and any remnant ligament was incised. The scope was withdrawn and the proximal aspect of the carpal tunnel was grossly inspected and appeared release with the median nerve visible. The antebrachial fascia at the level of the wrist was then freed from the overlying skin and then the underlying median nerve with blunt dissection. This was transected longitudinally for about 3cm proximal to the wrist incision. The wound was then irrigated with easy flow of irrigant distally and proximally. The incision was closed with a single 4-0 Nylon suture. The wound was dressed with Xeroform, Gauze, Kerlix and Jose. The tourniquet was deflated with the initial dressing and held with some pressure. Blood flow returned easily to all digits with capillary refill less than 2 seconds. The patient tolerated the procedure well and was returned to the Same Day Surgery area in a stable condition suffering no known complication. Date of Procedure: 02/04/25
--- NOTE | 2025-02-04 22:52 | W.PM.PROGNOT ---
Date of Service Date of service: 02/04/25 Time of Service: 15:00 Exam Const General: cooperative, comfortable and no acute distress Nutritional Appearance: well nourished Orientation: alert, awake and oriented x3 Psych Mental Status: mental status grossly normal Speech and Movement: speech and movement normal Mood: congruent mood Affect: normal affect Attitude: cooperative Objective Last Vital Signs Temp 36.6 C 02/04/25 16:19 Pulse 60 02/04/25 16:19 Resp 18 02/04/25 16:19 BP 168/73 H 02/04/25 16:19 Pulse Ox 96 02/04/25 16:19
== END 2025-02-04 16:55 | disposition home or self-care (01) ==
PROVIDERS: PCP Family Medicine; Visit Provider Student in an Organized Health Care Education/Training Program
PROC: 01N54ZZ Release Median Nerve, Percutaneous Endoscopic Approach (ICD-10-PCS; CPT 29848; principal; 2025-02-04 15:30)
DX: G56.01 Carpal tunnel syndrome, right upper limb
CPT/HCPCS: 29848; J2004

== ENCOUNTER → 2025-02-12 08:06 | Outpatient (BNVA) | payer MEDICARE, OTHER, SELFPAY | PROVIDERS: PCP Family Medicine; Referring Provider Family Medicine; Visit Provider Student in an Organized Health Care Education/Training Program | DX: Z47.89 Encounter for other orthopedic aftercare (principal); M72.0 Palmar fascial fibromatosis [Dupuytren]; R20.0 Anesthesia of skin | CPT/HCPCS: 99024 ==